=== PATIENT | male | born 1960 ===

== ENCOUNTER 2022-01-16 06:38 | Day surgery (SDC) | payer OTHER ==
[~2022-01-16] VITALS: Ht 175.3 cm; Wt 129.7 kg
== END 2022-01-16 20:20 | disposition home or self-care (01) ==
LOC: CIR.AMB 06:38
PROVIDERS: ATTEND Specialist
DX: K40.90 Unilateral inguinal hernia, without obstruction or gangrene, not specified as recurrent (principal); D17.6 Benign lipomatous neoplasm of spermatic cord; I10 Essential (primary) hypertension; Z71.6 Tobacco abuse counseling; F17.210 Nicotine dependence, cigarettes, uncomplicated
CPT/HCPCS: 49505; 55520; C1781